=== PATIENT | female | born 1995 | race Caucasian/White ===

== ENCOUNTER 2019-03-14 08:00 | Outpatient (CLI) | payer OTHER ==
--- NOTE | 2019-03-14 08:40 | CT ---
CT STONE PROTOCOL: HISTORY:Left flank pain COMPARISON: None DISCLAIMER: Absence of oral and IV contrast reduces the sensitivity of the exam particularly for the evaluation of solid organs and bowel. FINDINGS: The lung bases are clear. No free air or free fluid is seen in the abdomen or pelvis. No calcified ga llstones are noted. An IUD is present. There is no evidence of appendicitis. No calculi are seen in the kidneys, ureters or the urinary bladder. No hydroureteronephrosis is noted on either side. No acute osseous abnormalities are noted. The aortic caliber is normal. The small bowel loops are not abnormally dilated. IMPRESSION: No CT evidence of urinary tract calculi or obstruction.
== END 2019-03-14 08:01 | disposition home or self-care (01) ==
LOC: BICCT 08:00
PROVIDERS: ATTEND Nurse Practitioner Family
DX: R10.9 Unspecified abdominal pain (principal)
CPT/HCPCS: 74176

== ENCOUNTER 2019-12-19 09:25 | Outpatient (CLI) | payer OTHER ==
--- NOTE | 2019-12-19 11:03 | RAD ---
PA AND LATERAL VIEWS CHEST: Date: 12/19/2019 HISTORY: Cough. FINDINGS: The cardiomediastinum is normal. The lungs are expanded and clear. The bony thorax is normal. IMPRESSION: Normal exam. POS: [facility]
== END 2019-12-19 09:26 | disposition home or self-care (01) ==
LOC: RAD-FRANK 09:25
PROVIDERS: ATTEND Nurse Practitioner Family
DX: R05 Cough (principal)
CPT/HCPCS: 71046

== ENCOUNTER 2024-04-07 22:20 | Emergency (ER) | payer BC, OTHER ==
[2024-04-07 23:41] LABS: #Basophils 0.15 10x3/uL (0.0-0.2); %Basophils 1.4 % (0.0-1.0); %Eosinophils 1.4 % (0.0-10.0); %Lymphocytes 34.3 % (21.0-51.0); %Monocytes 9.1 % (0.0-10.0); %Neutrophils 53.5 % (42.0-75.0); Hematocrit 41.3 % (36.0-47.0); Hemoglobin 14.1 g/dL (12.0-16.0); Mean Corpuscular HGB CONC 34.1 g/dL (32.0-36.0); Mean Corpuscular Hemoglobin 32.1 pg (27.0-31.0); Mean Corpuscular Volume 94.1 fL (78.0-98.0); Mean Platelet Volume 8.3 fL (7.4-10.4); Platelet Count 263 10x3/uL (130-400); RBC Distribution Width 11.8 % (11.5-14.5); Red Blood Cell (RBC) Count 4.39 mill/uL (4.20-5.40)
[2024-04-08 00:07] LABS: ALT (SGPT) 24 U/L (8-55); AST (SGOT) 20 U/L (5-34); Albumin 3.8 g/dL (3.5-5.0); Alkaline Phosphatase 47 U/L (40-110); Anion Gap 12 mmol/L (10-20); BUN (Urea Nitrogen) 16 mg/dL (7.0-18.7); Bilirubin, Total 0.4 mg/dL (0.2-1.2); Calc. Creatinine Clearance 0 mL/min (70-130); Calcium 8.9 mg/dL (7.8-10.44); Carbon Dioxide 21 mmol/L (22-29); Chloride 107 mmol/L (98-107); Estimated GFR 93; Globulin 3.3 g/dL (2.4-3.5); Glucose 95 mg/dL (70-105); Protein, Total 7.1 g/dL (6.0-8.3); Sodium 136 mmol/L (136-145)
== END 2024-04-08 01:23 | disposition home or self-care (01) ==
LOC: ERS 22:20
DX: I95.1 Orthostatic hypotension (principal)
CPT/HCPCS: 36415; 80053; 84443; 85025; 93005